=== PATIENT | male | born 1990 | race Caucasian/White ===

== ENCOUNTER 2019-09-15 22:29 | Emergency (ER) | payer SELFPAY ==
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
== END 2019-09-15 23:20 | disposition home or self-care (01) ==
LOC: JP.ED 22:29
DX: S01.01XA Laceration without foreign body of scalp, initial encounter (principal); V86.59XA Driver of other special all-terrain or other off-road motor vehicle injured in nontraffic accident, initial encounter
CPT/HCPCS: 12001; 99283